=== PATIENT | male | born 1990 | race Caucasian/White ===

== ENCOUNTER 2024-03-18 23:41 | Emergency (ER) | payer BC, MEDICAID ==
[2024-03-19] MEDS: hydrOXYzine HCl 50 MG/ML SDV IM ONE (00:20)
[2024-03-19] MEDS: HYDROmorphone 2 MG/ML SDV IM ONE (00:20)
[2024-03-19] MEDS: Ketorolac 30 MG/ML SDV IM ONE (01:44)
== END 2024-03-19 01:55 | disposition home or self-care (01) ==
LOC: FB.ED 23:41
DX: M25.552 Pain in left hip (principal); Z79.82 Long term (current) use of aspirin; Z79.899 Other long term (current) drug therapy
CPT/HCPCS: 96372; 99283; J1171; J1885; J3410